=== PATIENT | male | born 1990 | race Caucasian/White ===

== ENCOUNTER 2018-01-10 00:48 | Emergency (ER) | END 2018-01-10 04:30 | disposition home or self-care (01) ==

== ENCOUNTER 2018-11-14 09:24 | Emergency (ER) | payer SELFPAY ==
[~2018-11-14] VITALS: Ht 170.2 cm; Wt 75.3 kg
[~2018-11-14 09:24] MED LIST: IBUP-1542 PO
[2018-11-14 09:30] VITALS: BP 130/78; PULSE 102; RESP 18; Ht 170.2 cm; Wt 75.3 kg
[2018-11-14] MEDS ORDERED: KETOROLAC 30 MG INJ IM STA (09:45)
--- NOTE | 2018-11-14 09:54 | ERD ---
ER Documentation Chief Complaint Chief Complaint bilateral wrist pain right wrist swollen & goes numb x4 days HPI 28-year-old male presented to ED for bilateral wrist pain has been going on and off for the last 4 days. Patient denies any traumatic injury cannot recall any aggravating factors. Patient states the pain is an 8 out of 10 area patient states that the symptoms come and go. The patient denies fever chills night sweats worsening bone pain. Patient states that he does use recreational drugs and he has used IV drugs in the past. Patient denies any allergies to medications. Patient states is not currently taking any medications. The patient states that the symptoms have been off and on for the last couple months but the last 4 days that she has been worse. ROS All systems reviewed and are negative except as per history of present illness. Medications Home Meds Active Scripts Ibuprofen* (Motrin*) 600 Mg Tab, 600 MG PO Q6, #30 TAB Prov:MARTINA SEN PA-C 11/14/18 Allergies Allergies: Coded Allergies: No Known Allergy (Unverified , 01/10/18) PMhx/Soc History of Surgery: Yes (rhinoplasty) Anesthesia Reaction: No Hx Neurological Disorder: No Hx Respiratory Disorders: No Hx Cardiac Disorders: No Hx Psychiatric Problems: No Hx Miscellaneous Medical Probl: No Hx Alcohol Use: Yes Hx Substance Use: Yes (meth,ghp,) Hx Tobacco Use: No Smoking Status: Current some day smoker FmHx Family History: No diabetes, No coronary disease, No other Physical Exam Vitals Vital Signs Date Temp Pulse Resp B/P (MAP) Pulse Ox O2 O2 Flow FiO2 Time Delivery Rate 11/14/18 97.6 102 18 130/78 99 09:30 (95) Physical Exam GENERAL: Moderate Distress CHEST: Clear to auscultation bilaterally. There are no rales, wheezes or rhonchi. HEART: Regular rate and rhythm. No murmurs, clicks, rubs or gallops. EXTREMITIES: Patient's extremities are not hot to the touch there is no erythematous, swelling, tender to palpation to bilateral wrists. Patient has good range of motion in the extremity he has good sensation in the extremities he is able to flex and extend his wrist, extend his thumb, abduct and abduct his fingers without difficulty. There is no signs of open fractures or exposure of soft tissue. No skin pallor noted. Patient has intact gross motor function and distal pulses are present and equal bilaterally. NEUROLOGIC: Motor strength is 5 out of 5 strength in upper extremity. Sensation grossly intact. Results 24 hrs Current Medications Medications Dose Sig/Petra Start Time Status Last (Trade) Ordered Route PRN Stop Time Admin Dose Reason Admin Ketorolac 30 mg ONCE STAT 11/14/18 DC 11/14/18 Tromethamine IM 09:45 09:51 (Toradol) 11/14/18 09:47 Diphtheria/ 0.5 ml ONCE ONCE 11/14/18 DC 11/14/18 Tetanus/Acell IM* 10:00 09:59 Pertussis 11/14/18 10:01 (Adacel) Procedures/MDM ED course: The patient was stable throughout the ED course. The patient and/or family informed of laboratory and diagnostic imaging results throughout the ED course. Medications given in ER: Toradol Tdap Patient tolerated medication well with no adverse reactions. Patient reported improvement in pain. Medical decision making: Is a 28-year-old male presented to ED for intermittent wrist swelling and pain that is been going on for the last few months. Patient states the pain and swelling has been worse for the last 4 days. Patient denies any past medical history. Patient does state he is an IV drug user and has not injected any drugs in the last 2 months. Patient denies any allergies to medication. Patient's physical exam was unremarkable there is no signs of hot swollen joints there is no pain with passive movement no pain with active movement the patient remains neurovascular intact he is afebrile with vital stable there is no signs of puncture wounds. At this time I have low suspicion for abscess, osteomyelitis, compartment syndrome, fracture, dislocation,tenosynovitis. Tinel's test did slightly provoke symptoms in the wrist with numbness and tingling on the anterior aspect of bilateral wrist. At this time my working diagnosis is carpal tunnel versus rheumatoid arthritis. I advised the patient that he will need to follow-up with his primary care provider to have further work done if symptoms persist. I advised the patient symptoms worsen he should return to ER immediately. The patient was given a Toradol injection and a updated tetanus vaccination. Prior to discharge I reevaluated the patient the patient is still neurovascular intact and is comfortable with the treatment plan. The patient had no further questions upon discharge and all questions were answered prior to discharge Prescription for home: Motrin I have discussed with the patient proper use and common side effects to expert with the medication . I advised the patient/family to speak with the pharmacist dispensing the medication to be advised of any potential drug int eractions with other medication or supplements they may be taking. Discharge: At this time, patient is stable for discharge and outpatient management. I have instructed the patient to follow-up with his\her primary care physician in 1 to 2 days. I have discussed with the patient the possibility of needing to see a specialist for further work-up and imaging studies if symptoms persist. I have instructed the patient to promptly return to the ER for any new or worsening symptoms including increased pain, fever, nausea, vomiting, weakness or LOC. The patient and\or family expressed understanding of and agreement with this plan. All questions were answered. Home care instructions were provided. Disclaimer: Inadvertent spelling and grammatical errors are likely due to EHR\dictation software use and do not reflect on the overall quality of patient care. Also, please note that the electronic time recorded on the note does not necessarily reflect the actual time of the patient encounter. Departure Diagnosis: Primary Impression: Carpal tunnel syndrome, bilateral Condition: Stable Patient Instructions: Carpal Tunnel Syndrome Prevention Tips, Carpal Tunnel Referrals: [facility] YOU HAVE RECEIVED A MEDICAL SCREENING EXAM AND THE RESULTS INDICATE THAT YOU DO NOT HAVE A CONDITION THAT REQUIRES URGENT TREATMENT IN THE EMERGENCY DEPARTMENT. FURTHER EVALUATION AND TREATMENT OF YOUR CONDITION CAN WAIT UNTIL YOU ARE SEEN IN YOUR DOCTORS OFFICE WITHIN THE NEXT 1-2 DAYS. IT IS YOUR RESPONSIBILITY TO MAKE AN APPOINTMENT FOR FOLOW-UP CARE. IF YOU HAVE A PRIMARY DOCTOR --you should call your primary doctor and schedule an appointment IF YOU DO NOT HAVE A PRIMARY DOCTOR YOU CAN CALL OUR PHYSICIAN REFERRAL HOTLINE AT IF YOU CAN NOT AFFORD TO SEE A PHYSICIAN YOU CAN CHOSE FROM THE FOLLOWING [facility] [address] [facility] [address] [facility] [address] [facility] [address] [facility] [address] [facility]. [facility] [address] [facility]. [facility] YOU HAVE RECEIVED A MEDICAL SCREENING EXAM AND THE RESULTS INDICATE THAT YOU DO NOT HAVE A CONDITION THAT REQUIRES URGENT TREATMENT IN THE EMERGENCY DEPARTMENT. FURTHER EVALUATION AND TREATMENT OF YOUR CONDITION CAN WAIT UNTIL YOU ARE SEEN IN YOUR DOCTORS OFFICE WITHIN THE NEXT 1-2 DAYS. IT IS YOUR RESPONSIBILITY TO MAKE AN APPOINTMENT FOR FOLOW-UP CARE. IF YOU HAVE A PRIMARY DOCTOR --you should call your primary doctor and schedule and appointment IF YOU DO NOT HAVE A PRIMARY DOCTOR YOU CAN CALL OUR PHYSICIAN REFERRAL HOTLINE AT . IF YOU CAN NOT AFFORD TO SEE A PHYSICIAN YOU CAN CHOSE FROM THE FOLLOWING [facility] INSTITUTIONS: [facility] [address] [place] [address] [facility] [address] [place] [address] [facility] [address] [place] [address] [facility] Urgent Care 7 a.m.- 11 p.m. Every Day of the Week NO APPOINTMENT OR AUTHORIZATION NEEDED Additional Instructions: Call your primary care doctor TOMORROW for an appointment during the next 1-2 days.See the doctor sooner or return here if your condition worsens before your appointment time. MARTINA SEN PA-C Nov 14, 2018 09:54
[2018-11-14] MEDS ORDERED: DIPHTH/TET/ACEL PERTUSS (ADULT) 0.5 ML VIAL IM* ONE (10:00)
== END 2018-11-14 10:29 | disposition home or self-care (01) ==
LOC: FTE 09:24
DX: G56.03 Carpal tunnel syndrome, bilateral upper limbs (principal); F17.210 Nicotine dependence, cigarettes, uncomplicated; Z23 Encounter for immunization
CPT/HCPCS: 90471; 90715; 96372; 99284; J1885

== ENCOUNTER 2018-11-20 04:41 | Emergency (ER) | payer OTHER ==
[~2018-11-20] VITALS: Ht 180.3 cm; Wt 71.0 kg
[2018-11-20 04:45] VITALS: Ht 180.3 cm; Wt 71.0 kg
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
[2018-11-20 07:48] VITALS: BP 125/79; PULSE 80; RESP 18
== END 2018-11-20 07:49 | disposition home or self-care (01) ==
LOC: E/R 04:41
DX: M54.9 Dorsalgia, unspecified (principal); R51 Headache; M25.531 Pain in right wrist; M25.532 Pain in left wrist; R07.89 Other chest pain; R40.2142 Coma scale, eyes open, spontaneous, at arrival to emergency department; R40.2362 Coma scale, best motor response, obeys commands, at arrival to emergency department; R40.2252 Coma scale, best verbal response, oriented, at arrival to emergency department
CPT/HCPCS: 70450; 71045; 72125